=== PATIENT | male | born 1970 | race Caucasian/White ===

== ENCOUNTER → 2016-07-08 07:40 | Day surgery (SDC) | payer OTHER ==
--- NOTE | 2016-06-26 01:17 | HP ---
ADMISSION HISTORY AND PHYSICAL: DATE OF ADMISSION: 07/08/16 ATTENDING SURGEON: Dr. Te Hopper (dictated by JOSE ALBERTO Ontiveros) CHIEF COMPLAINT: Right breast mass. HISTORY OF PRESENT ILLNESS: This is a 45-year-old male who beginning about 9 months ago noted swelling in the right breast. This was associated with tenderness only in relation to direct pressure or trauma. He denies any nipple discharge. He did undergo ultrasound in September 2015 and then subsequently was seen by Dr. Hopper and underwent biopsy on 10/14/15, this showing no malignant cells. The patient was reassured and then returned for followup in May of this year noting that there had been some increased swelling in the mass. A repeat ultrasound on 05/12/16 confirmed the presence of hypoechoic retroareolar masses bilaterally with increasing size, the right side measuring 2.9 x 1.1 cm, the left side 2.0 x 0.5 cm (he has been asymptomatic on the left side). Exam by Dr. Hopper confirmed presence of a somewhat asymmetric mass in the right breast (predominance laterally). This was minimally tender. There was no palpable mass noted on the left and no palpable axillary or supraclavicular lymphadenopathy. Dr. Hopper has discussed with him the options including surgical risks, benefits, and alternatives. The patient would like to proceed as scheduled with excision of right breast mass. We did receive a letter from his support associate, both regarding risk assessment as well as perioperative anticoagulant and antiplatelet therapy perioperatively. 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 The patient states his most recent echocardiogram (within the past year) was in the mid to high 20% range. He also had an AICD placed in 2011, but has never received any shock. History of hypertension, hyperlipidemia, and gout. PAST SURGICAL HISTORY: His only previous surgeries have been the BLUEPRINTING AND PHOTOCOPY SUPERVISOR with stent as noted above, the AICD placement, and dental surgery. He reports no surgical or anesthesia complications. CURRENT MEDICATIONS: 1. Nitroglycerin 0.4 mg sublingual p.r.n. for chest pain (he has only used once ever). 2. Allopurinol 100 mg 1/2 tablet once daily. 3. Digoxin 125 mcg once daily. 4. Coreg 25 mg b.i.d. 5. Multivitamin once daily. 6. Plavix 75 mg daily (the patient is instructed to hold after his last dose on 07/03/16). 7. Pradaxa 150 mg b.i.d. (the patient is instructed to hold after his last dose the evening of 07/06/16). 8. Lasix 20 mg b.i.d. 9. Ramipril 10 mg daily. 10. Lipitor 40 mg daily. DRUG ALLERGIES: None known. FAMILY HISTORY: Positive for prostate cancer in his father and uncle as well as vaginal cancer in his mother. He also has a sister who apparently had some type of precancerous condition of one of her ovaries. There is no known family history of anesthesia problems, bleeding or clotting disorders. There is a strong family history of coronary and valvular heart disease. SOCIAL HISTORY: The patient is . He has 1 child. 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 He is a current smoker of 7 cigarettes per day and has smoked for the past 26 years. He is attempting to taper down and eventually quit. He drinks up to 4 drinks at a time, but less than once weekly. He denies other drug use. REVIEW OF SYSTEMS: General: No recent constitutional symptoms or acute illnesses. His weight has been stable. Cardiovascular: As above. No additions. See separate attached from Dr. Ta. Respiratory: No significant shortness of breath (he has fairly good activity tolerance as long as he paces himself). GI: No problems reported. : No problems reported. Endocrine: No diabetes or thyroid dysfunction. PHYSICAL EXAMINATION GENERAL: Well-nourished, well-developed male in no acute distress. VITAL SIGNS: Height 67 inches, weight 187 pounds, blood pressure 128/78, pulse 60, respirations 16. HEENT: Pupils equal, round, and reactive. EOMs intact. No conjunctival pallor. Oropharynx: He is edentulous, but does use a full upper denture. No intraoral lesions. NECK: No lymphadenopathy in the cervical or supraclavicular regions. No thyromegaly or masses. HEART: Regular rate and rhythm. No murmur appreciated. There is an implanted device in the left upper chest wall. BREASTS: No palpable masses in the left breast. There is a palpable mass in the right breast as described in the HPI. There is no expressible nipple discharge and no significant tenderness to palpation. Per Dr. Hopper's exam, there is no axillary adenopathy. ABDOMEN: Soft, nontender to palpation. No palpable masses or organomegaly. EXTREMITIES: No edema. GENITALIA AND RECTAL: No palpable inguinal hernias. There is what feels like an epididymal cyst on the left. This has benign characteristics. Testis itself is normal. Rectal: Not done. BACK: No spinous process or CVA tenderness. NEUROLOGICAL: Grossly intact. SKIN: Warm and dry. No suspicious rashes or lesions. IMPRESSION: Right breast mass. PLAN: Excision, right breast mass. JOSE ALBERTO BACON CC: Dr. Pedro Ta; Prachi Zarate NP, in [place] [id number]/CPS #: [id number] MTDD
[~2016-07-08 07:40] MED LIST: Buffered Lidocaine 1% SYR 3ML* 3 ML/SYR SYRINGE INTRADERM ONE; Bupivacaine 0.5% W/EPI SDV* 30 ML VIAL ONE; Famotidine IV* 10 MG/ML 2 ML (20 mg) IV ONE; Lidocaine 1% INJ* 10 MG/ML 30 ML SDV ONE; Midazolam* 1 MG/ML 5 ML VIAL (5 MG) ONE; Ondansetron INJ* 2 MG/ML VIAL IV PRN; ceFAZolin 1 GM in Dextrose (*) 2 GM/100 ML BAG IVPB ONE; fentaNYL* 50 MCG/ML 2 ML VIAL (100 MCG VIAL) ONE
[2016-07-08 11:56] VITALS: BP 135/74
--- NOTE | 2016-07-08 13:13 | OP ---
DATE OF OPERATION: 07/08/16 - [facility] DATE OF : 68 SURGEON: Te Hopper M.D. FIRE PREVENTION FORESTER: Aline Kincaid NP ANESTHESIOLOGIST: Nya Carlson MD ANESTHESIA: LMAC anesthesia. PRE-OP DIAGNOSIS: Right breast mass. POST-OP DIAGNOSIS: Right breast mass. OPERATIVE PROCEDURE: Excision, right breast mass. DESCRIPTION OF PROCEDURE: The patient was supine on the operating room table. After adequate intravenous sedation, compression stockings, Faviola Hugger warmer, and intravenous antibiotics, the right breast was clipped and prepped with antiseptic, draped in a sterile fashion. Local infiltrative anesthesia was administered. Approximately 5 cm incision was created just above the areola out towards the lateral aspect and approximately 4 x 6 cm mass was removed, marked with usual localizing sutures. A little bit of additional inferior tissue was also removed. This was all sent in Formalin. Hemostasis was obtained using bipolar cautery and then adipose closed with 3-0 and 5-0 Polysorb followed by Steri-Strips. She tolerated the procedure well and was brought to Recovery in good condition. No complications. No drains. Pathologic specimen is right breast mass. Sponge and instrument counts correct. Estimated blood loss was less than 20 mL. CC: Dr. Pedro Ta; Roberto Zarate NP * [id number]/[facility] #: [id number] [facility] STATE HOSPITALElida
== END | disposition home or self-care (01) ==
LOC: OR 07:40
PROVIDERS: ATTEND Surgery
DX: N62 Hypertrophy of breast (principal); Z79.01 Long term (current) use of anticoagulants; Z79.02 Long term (current) use of antithrombotics/antiplatelets; E78.5 Hyperlipidemia, unspecified; I10 Essential (primary) hypertension; I25.5 Ischemic cardiomyopathy; F17.210 Nicotine dependence, cigarettes, uncomplicated; M10.9 Gout, unspecified; Z95.810 Presence of automatic (implantable) cardiac defibrillator; I25.2 Old myocardial infarction; I25.10 Atherosclerotic heart disease of native coronary artery without angina pectoris; Z95.5 Presence of coronary angioplasty implant and graft
CPT/HCPCS: 88307; J0690; J2250; J3010

== ENCOUNTER 2018-09-18 13:51 | Emergency (ER) | payer BC ==
[2018-09-18 14:19] VITALS: BP 133/73
--- NOTE | 2018-09-18 14:30 | UC ---
Throat Pain/Nasal Khris HPI - HPI Summary HPI Summary: 47-year-old male with sore throat over the past couple of days. He feels like his throat is swollen. - History of Current Complaint Chief Complaint: UCGeneralIllness Stated Complaint: SORE THROAT Time Seen by Provider: 09/18/18 14:06 Hx Obtained From: Patient Onset/Duration: Gradual Onset Severity: Mild Pain Intensity: 2 Cough: None Associated Signs & Symptoms: Positive: Negative - Allergies/Home Medications Allergies/Adverse Reactions: Allergies Allergy/AdvReac Type Severity Reaction Status Date / Time MS Mushroom Extract Complex Allergy Severe rash, Verified 09/18/18 14:15 [Mushroom Extract Complex] difficulty breathing garlic Allergy "Throat Verified 09/18/18 14:15 swelled up, hard time breathing" whole wheat Allergy Severe rash, Uncoded 09/18/18 14:15 difficulty breathing Home Medications: Home Medications Potassium Chlor TAB* [Klor Con ER TAB*] 20 meq PO DAILY 09/18/18 [History Confirmed 09/18/18] PMH/Surg Hx/FS Hx/Imm Hx Previously Healthy: Yes Cardiovascular History: Cardiac Disease, Hypertension - Surgical History Surgical History: Yes Surgery Procedure, Year, and Place: AICD PLACEMENT 2012 IN [place]. REMOVAL OF ALL TEETH - Family History Known Family History: Positive: Non-Contributory - Social History Alcohol Use: Occasionally Substance Use Type: None Smoking Status (MU): Light Every Day Tobacco Smoker Type: Cigarettes Amount Used/How Often: 1/2-3/4 PPD Length of Time of Smoking/Using Tobacco: Since Age 19 Review of Systems All Other Systems Reviewed And Are Negative: Yes ENT: Positive: Sore Throat Is Patient Immunocompromised?: No Physical Exam Triage Information Reviewed: Yes Appearance: Well-Appearing, No Pain Distress, Well-Nourished Vital Signs: Initial Vital Signs Temp 98.4 F 09/18/18 14:11 Pulse 58 09/18/18 14:11 Resp 16 09/18/18 14:11 BP 133/73 09/18/18 14:11 Pulse Ox 100 09/18/18 14:11 Vital Signs Reviewed: Yes Eyes: Positive: Conjunctiva Clear ENT: Positive: Pharyngeal erythema - Mild tonsillar erythema with minimal swelling, TMs normal, Uvula midline Neck: Positive: Supple, Nontender, No Lymphadenopathy Respiratory: Positive: Lungs clear, Normal breath sounds, No respiratory distress, No accessory muscle use Cardiovascular: Positive: RRR, No Murmur, Pulses Normal, Brisk Capillary Refill Musculoskeletal Exam: Normal Neurological Exam: Normal Psychological Exam: Normal Skin Exam: Normal Throat Pain/Nasal Course/Dx - Course Course Of Treatment: Soft Tissue neck:FINDINGS: SOFT TISSUES: The prevertebral soft tissues are normal. BONES: Mild degenerative changes are noted. AIRWAY: There is a continuous air column from the pharynx to the trachea. The aryepiglottic folds are normal. The epiglottis is normal. OTHER: The lung apices are clear. The skull base is unremarkable. There is no radiopaque foreign body. Pacemaker leads are noted. IMPRESSION: UNREMARKABLE RADIOGRAPHS OF THE SOFT TISSUES OF THE NECK. Rapid strep test was negative. I am going to send it for culture mostly because of the patient's heart history. - Differential Dx/Diagnosis Provider Diagnosis: Pharyngitis Discharge - Sign-Out/Discharge Documenting (check all that apply): Patient Departure All imaging exams completed and their final reports reviewed: Yes - Discharge Plan Condition: Fair Disposition: HOME Patient Education Materials: Pharyngitis (ED) Referrals: Roberto Zarate NP [Primary Care Provider] - Additional Instructions: Warm saltwater gargles, throat lozenges, we will call you with the throat culture results when it comes back if it is positive. If you have any worsening symptoms or feeling like your throat is closing or difficulty breathing go to the emergency room. - Billing Disposition and Condition Condition: FAIR Disposition: Home - Attestation Statements Provider Attestation: I was available for consult. This patient was seen by the ED. The patient was not presented to, seen by, or examined by me. -Philippe
--- NOTE | 2018-09-21 12:40 | UC ---
- Progress Note Progress Note: Full throat culture grew Haemophilus influenza. If still having symtpoms, rx for augmentin could be called in for him. If improved, it is ok to leave this without further treatmetn. Course/Dx - Diagnoses Provider Diagnoses: Pharyngitis Discharge - Sign-Out/Discharge Documenting (check all that apply): Patient Departure All imaging exams completed and their final reports reviewed: Yes - Discharge Plan Condition: Fair Disposition: HOME Patient Education Materials: Pharyngitis (ED) Referrals: Roberto Zarate NP [Primary Care Provider] - Additional Instructions: Warm saltwater gargles, throat lozenges, we will call you with the throat culture results when it comes back if it is positive. If you have any worsening symptoms or feeling like your throat is closing or difficulty breathing go to the emergency room. - Billing Disposition and Condition Condition: FAIR Disposition: Home
== END 2018-09-18 15:07 | disposition home or self-care (01) ==
LOC: UCCORT 13:51
DX: J02.9 Acute pharyngitis, unspecified (principal); B96.3 Hemophilus influenzae [H. influenzae] as the cause of diseases classified elsewhere; I10 Essential (primary) hypertension; F17.210 Nicotine dependence, cigarettes, uncomplicated
CPT/HCPCS: 70360; 87070; 87077; 87185; 87651; 99211; G0463